=== PATIENT | male | born 1970 | race Caucasian/White ===

== ENCOUNTER → 2017-04-11 | Outpatient (CLI) | payer OTHER ==
[2017-04-11 09:59] LABS: Basophils % (A) 0 %; CH 32.2; CHCM 33.4; Eosinophils # (A) 0.1 k/uL (0-0.7); Eosinophils % (A) 1 %; HCT 40.1 % (39.0-53.0); HDW 2.48; HGB 13.2 gm/dL (13.0-17.5); Luc # (Auto) 0.08; Luc % (Auto) 2; Lymphocytes # (A) 1.2 k/uL (1.0-4.8); Lymphocytes % (A) 23 %; MCHC 32.9 g/dL (31.0-37.0); MCV 97.1 fL (80.0-100.0); Mean Platelet Volume 8.4; Monocytes # (A) 0.3 k/uL (0-1.0); Monocytes % (A) 6 %; Neutrophils # (A) 3.6 k/uL (1.3-7.7); Neutrophils % (A) 68 %; RBC 4.13 m/uL (4.30-5.90); RDW 14.1 % (11.5-15.5); WBC 5.3 k/uL (3.8-10.6); WBC (Perox) 5.37
[2017-04-11 10:16] LABS: ALT 34 U/L (21-72); AST 30 U/L (17-59); Alkaline Phosphatase 69 U/L (38-126); Anion Gap 7 mmol/L; Blood Urea Nitrogen 17 mg/dL (9-20); Calcium 8.8 mg/dL (8.4-10.2); Carbon Dioxide 27 mmol/L (22-30); Chloride 110 mmol/L (98-107); Cholesterol 144 mg/dL (<200); Creatine Kinase 52 U/L (55-170); Glucose 88 mg/dL (74-99); HDL Cholesterol 37 mg/dL (40-60); Non-African American GFR(MDRD) >60 (>60 ml/min/1.73 sqM); Potassium 4.9 mmol/L (3.5-5.1); Sodium 144 mmol/L (137-145); Total Bilirubin 0.3 mg/dL (0.2-1.3); Total Protein 7.1 g/dL (6.3-8.2)
[2017-04-11 10:37] LABS: Erythrocyte Sedimentation Rate 19 mm/hr (0-15)
[2017-04-11 10:47] LABS: Prostate Specific Antigen 0.44 ng/mL (0.00-4.00)
[2017-04-11 11:05] LABS: Vitamin B12 483 pg/mL (239-931)
[2017-04-11 11:47] LABS: Hepatitis B Surface Ag Index 0.05
[2017-04-11 11:53] LABS: Hepatitis B Core IgM Index 0.02
[2017-04-11 12:05] LABS: Hepatitis C Virus IgG Ab Negative (Negative); Hepatitis C Virus IgG Index 0.46
[2017-04-11 16:32] LABS: Treponemal Ab Non-Reactive (Non-Reactive)
== END | disposition home or self-care (01) ==
LOC: LABWHC1 09:41
PROVIDERS: ATTEND Family Medicine
DX: Z00.00 Encounter for general adult medical examination without abnormal findings (principal); A64 Unspecified sexually transmitted disease; Z11.59 Encounter for screening for other viral diseases
CPT/HCPCS: 36415; 80053; 80061; 80074; 82306; 82550; 82607; 84153; 84443; 85025; 85652; 86780; 87389; 87390

== ENCOUNTER 2017-10-07 22:00 | Emergency (ER) | payer OTHER ==
[2017-10-07 22:13] VITALS: BP 100/73; PULSE 114; RESP 16; TEMP 98.7
--- NOTE | 2017-10-07 22:44 | ED ---
Skin/Abscess/FB HPI - General Chief complaint: Skin/Abscess/Foreign Body Stated complaint: burn on thumb Time Seen by Provider: 10/07/17 22:18 Source: patient, RN notes reviewed Mode of arrival: ambulatory Limitations: no limitations - History of Present Illness Initial comments: This is a 47-year-old male who presents to the emergency department with chief complaint of burn on his right thumb. Patient states that he burned his right thumb with a cigarette one week ago. He states that he feels like it is infected. He states that it is very painful. 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 Denies any fevers or chills. Denies shortness of breath or chest pain, abdominal pain, nausea or vomiting. - Related Data Home Medications Medication Instructions Recorded Confirmed Doxazosin [Cardura] 2 mg PO DAILY 01/03/16 02/15/16 Mupirocin Calcium 2% Cream 1 applic TOPICAL DIRECTED 01/03/16 02/15/16 [Bactroban Cream] Omeprazole 20 mg PO DAILY 01/03/16 02/15/16 QUEtiapine [SEROquel] 800 mg PO BID 01/03/16 02/15/16 Previous Rx's Medication Instructions Recorded Cephalexin [Keflex] 500 mg PO Q12HR #20 cap 10/07/17 Sulfamethox-Tmp 800-160Mg [Bactrim 1 tab PO Q12HR #20 tab 10/07/17 DS 800-160 mg] Allergies Allergy/AdvReac Type Severity Reaction Status Date / Time No Known Allergies Allergy Verified 10/07/17 22:11 Review of Systems ROS Statement: Those systems with pertinent positive or pertinent negative responses have been documented in the HPI. ROS Other: All systems not noted in ROS Statement are negative. Past Medical History Past Medical History: CVA/TIA Additional Past Medical History / Comment(s): States no HX History of Any Multi-Drug Resistant Organisms: None Reported Past Surgical History: Hernia Repair Past Anesthesia/Blood Transfusion Reactions: No Reported Reaction Past Psychological History: Depression Smoking Status: Current every day smoker Past Alcohol Use History: None Reported Past Drug Use History: Marijuana - Past Family History Mother Family Medical History: Cancer General Exam - General Exam Comments Initial Comments: General: Awake and alert, well-developed; in no apparent distress. HEENT: Head atraumatic, normocephalic. Pupils are equal, round and reactive to light. Extraocular movements intact. Oropharynx moist without erythema or exudate. Poor dentition throughout. Neck: Supple. Normal ROM. Cardiovascular: Regular rate and rhythm. No murmurs, rubs or gallops. Chest symmetrical. Respiratory: Lungs clear to auscultation bilaterally. No wheezes, rales or rhonchi. Normal respiratory effort with no use of accessory muscles. Musculoskeletal: Normal ROM, no tenderness bilateral upper and lower extremities. Ambulating normally. Skin: [place], warm and dry. 1 cm x 1 cm superficial boil-like lesion on pad of right thumb. Appears to be a green substance within the lesion. Surrounding erythema with tenderness on palpation. Limitations: no limitations Course Vital Signs 10/07/17 22:11 Temperature 98.7 F Pulse Rate 114 H Respiratory 16 Rate Blood Pressure 100/73 O2 Sat by Pulse 97 Oximetry Procedures - Incision & Drainage Consent Obtained: verbal consent Indication: Abscess Site: hand (Pad of right thumb) Size (cm): 1 I&D Cleaning Method: Alcohol Wipe Scalpel Used: #11 I&D Drainage Obtained: Pus Culture Obtained?: No Patient Tolerated Procedure: well, no complications Medical Decision Making - Medical Decision Making This is a 47-year-old male who presents to the emergency department with chief complaint of burn to the right thumb one week ago. There is a superficial boil like lesion with green substance inside. I&D was performed. Patient tolerated well without complication. Patient does report a history of MRSA. He will be started on Keflex and Bactrim. Vital signs are stable. Patient will be discharged home. He is in agreement with plan and voices understanding. All questions were answered. Disposition Clinical Impression: Abscess of skin or subcutaneous tissue Disposition: HOME SELF-CARE Condition: Good Instructions: Abscess Incision and Drainage (ED), Abscess (ED) Additional Instructions: Please take medications as prescribed. Please follow-up with Dr. Rodriguez, orthopedics within 1-2 days. Please follow up with primary care provider within 1-2 days. Return to emergency department if symptoms should worsen or any concerns arise. Prescriptions: Cephalexin [Keflex] 500 mg PO Q12HR #20 cap Sulfamethox-Tmp 800-160Mg [Bactrim DS 800-160 mg] 1 tab PO Q12HR #20 tab Referrals: None,Stated [Primary Care Provider] - 1-2 days Cliff Rodriguez DO [Doctor of Osteopathic Medicine] - 1-2 days Time of Disposition: 22:51
== END 2017-10-07 22:55 | disposition home or self-care (01) ==
LOC: EC 22:00
DX: L02.511 Cutaneous abscess of right hand (principal); F32.9 Major depressive disorder, single episode, unspecified; F17.200 Nicotine dependence, unspecified, uncomplicated; Z86.14 Personal history of Methicillin resistant Staphylococcus aureus infection; Z86.73 Personal history of transient ischemic attack (TIA), and cerebral infarction without residual deficits; Z79.899 Other long term (current) drug therapy
CPT/HCPCS: 10060; 99283

== ENCOUNTER → 2020-08-29 | Outpatient (CLI) | payer OTHER ==
--- NOTE | 2020-08-29 16:07 | XR ---
MR spine HISTORY: Low back pain 3 views of lumbar spine submitted and correlated prior exam 12/03/2014 Lumbar vertebral bodies show stable height, alignment, and bone mineralization. There is mild multile nighat spondylosis present. Disc spaces are maintained, mild disc height loss L3-4. There is ossific den sity in the left lower quadrant which is incompletely visualized and indeterminate. Minimal retrolist hesis grade 1 L3-4. IMPRESSION: Degenerative disc disease is mild. Indeterminate density noted incidentally on the left.
== END | disposition home or self-care (01) ==
LOC: RADXRMAIN 15:17
PROVIDERS: ATTEND Nurse Practitioner
DX: M51.36 Other intervertebral disc degeneration, lumbar region (principal)
CPT/HCPCS: 72100

== ENCOUNTER → 2020-09-13 | Outpatient (CLI) | payer OTHER ==
[2020-09-13 15:22] LABS: Basophils % (A) 1 %; Eosinophils # (A) 0.1 k/uL (0-0.7); Eosinophils % (A) 3 %; HGB 14.5 gm/dL (13.0-17.5); Lymphocytes # (A) 0.5 k/uL (1.0-4.8); Lymphocytes % (A) 15 %; MCH 31.9 pg (25.0-35.0); MCHC 33.7 g/dL (31.0-37.0); MCV 94.7 fL (80.0-100.0); Mean Platelet Volume 9.4; Monocytes # (A) 0.2 k/uL (0-1.0); Monocytes % (A) 8 %; Neutrophils # (A) 2.3 k/uL (1.3-7.7); Neutrophils % (A) 73 %; Platelet Count 105 k/uL (150-450); RBC 4.54 m/uL (4.30-5.90); RDW 13.3 % (11.5-15.5); WBC 3.2 k/uL (3.8-10.6)
[2020-09-13 19:38] LABS: Albumin 3.7 g/dL (3.5-5.0); Calcium 8.5 mg/dL (8.4-10.2); Potassium 4.5 mmol/L (3.5-5.1); Total Bilirubin 0.7 mg/dL (0.2-1.3); Total Protein 8.3 g/dL (6.3-8.2)
--- NOTE | 2020-09-13 21:59 | CT ---
EXAMINATION TYPE: CT abdomen w con DATE OF EXAM: 09/13/2020 COMPARISON: None. INDICATION: Abnormal findings x-ray DLP: 1421.90 mGycm, Automated exposure control for dose reduction was used. CONTRAST: 100 mL of Isovue 300. Study performed without Oral Contrast TECHNIQUE: Axial images were obtained from above the diaphragm to the pubic rami in the axial plane a t 5 mm thick sections. Reconstructed images are reviewed on the computer in the coronal plane. FINDINGS: Limited CT sections are obtained the lung bases. The lung bases are clear. CT ABDOMEN: Liver: Normal Spleen: Normal Pancreas: Normal Adrenal glands: The adrenal glands are normal. Gallbladder: Gallstone is present. Kidneys: Right kidney is atrophic. There is a large extrarenal pelvis and hydronephrosis. Hydroureter on the right is not evident. No left hydronephrosis or hydroureter is evident.. Delayed images were obtained through the kidneys which otherwise appear unremarkable Aorta: Vascular calcification is within the aorta. Inferior vena cava: Normal. Loops of bowel within the abdomen and pelvis are normal. There are loops of bowel which are incom pletely distended or lack oral contrast limiting their evaluation. Appendix: Normal as visualized. IMPRESSIONS: 1. Atrophic right kidney with hydronephrosis. No hydroureter is evident.
== END | disposition home or self-care (01) ==
LOC: RADCTMAIN 13:40
PROVIDERS: ATTEND Internal Medicine
DX: N13.39 Other hydronephrosis (principal); B20 Human immunodeficiency virus [HIV] disease
CPT/HCPCS: 87535; 80053; 87901; 85025; 74160; 36415; Q9967; 86355; 86357; 86359; 86360

== ENCOUNTER → 2020-11-17 | Outpatient (CLI) | payer OTHER ==
[~2020-11-17] MED LIST: FUROSEMIDE 10 MG/ML 2 ML VIAL IV ONE
--- NOTE | 2020-11-17 16:21 | NM ---
EXAMINATION TYPE: NM lasix renogram DATE OF EXAM: 11/17/2020 COMPARISON: CT 09/13/2020 HISTORY: N 13.3, hydronephrosis Following administration of 10.6 mCi Tc 99m MAG3 with 20mg Lasix. Immediate images post injection FINDINGS: Left: 94.4 %. Right: 5.6 %. Max renal flow left: 6 minutes. Max renal flow right: 5.6 minutes. Satisfactory accumulation of radiotracer within left renal collecting system. Not much activity ident ified within the right knee. After the administration of Lasix, there is prompt excretion from the le ft renal collecting system. Some delayed activity is noted within the right kidney, minimal excretion is noted. T 1/2 left: 15.3 minutes. T 1/2 right: 18.8 minutes. IMPRESSION: Atrophic right kidney. Activity is primarily within the left kidney suggesting primary renal function on the left.
== END | disposition home or self-care (01) ==
LOC: RADNMMAIN 12:49
PROVIDERS: ATTEND Urology
DX: N26.1 Atrophy of kidney (terminal) (principal)
CPT/HCPCS: 78708; A9562

== ENCOUNTER → 2020-11-17 | Outpatient (CLI) | payer OTHER ==
[2020-11-17 21:14] LABS: African American GFR (CKD) 56.6 (60.0-200.0); Anion Gap 6.2 mmol/L (4.00-12.00); BUN/Creat Ratio 11.25 Ratio (12.00-20.00); Calcium 9.1 mg/dL (8.7-10.3); Carbon Dioxide 25.8 mmol/L (21.6-31.8); Non-African American GFR(CKD) 48.8 (60.0-200.0); Potassium 4.3 mmol/L (3.5-5.5)
[2020-11-17 21:29] LABS: Basophils # (A) 0.01 X 10*3/uL (0.00-0.10); Basophils % (A) 0.2 %; Eosinophils # (A) 0.04 X 10*3/uL (0.04-0.35); Eosinophils % (A) 0.8 %; HCT 42.5 % (39.6-50.0); HGB 13.6 g/dL (13.0-17.0); Lymphocytes # (A) 0.74 X 10*3/uL (0.90-5.00); Lymphocytes % (A) 15.5 %; MCH 30.4 pg (27.0-32.0); MCV 95.1 fL (80.0-97.0); Mean Platelet Volume 11.7 fL (9.5-12.2); Monocytes # (A) 0.39 X 10*3/uL (0.20-1.00); Monocytes % (A) 8.2 %; Neutrophils # (A) 3.56 X 10*3/uL (1.80-7.70); Neutrophils % (A) 74.9 %; Platelet Count 109 X 10*3/uL (140-440); RBC 4.47 X 10*6/uL (4.40-5.60); RDW 14.5 % (11.5-14.5); WBC 4.76 X 10*3/uL (4.50-10.00)
[2020-11-18 14:18] LABS: T Helper Cell (CD4) 18 cell/ul (443-1471); T Helper Cell (CD4) % 3 % (35-66); T Suppressor Cell (CD8) 493 cell/ul (190-832); T Suppressor Cell (CD8) % 72 % (9-37); T4/T8 Ratio (CD4:CD8) <0.1 (1.0-3.7)
== END | disposition home or self-care (01) ==
LOC: LABWHC1 13:55
PROVIDERS: ATTEND Internal Medicine Infectious Disease
DX: B20 Human immunodeficiency virus [HIV] disease (principal)
CPT/HCPCS: 36415; 80048; 85025; 86360; 87901

== ENCOUNTER 2020-11-22 10:55 | Emergency (ER) | payer OTHER ==
[2020-11-22 11:32] VITALS: RESP 18
--- NOTE | 2020-11-22 12:48 | CT ---
EXAMINATION TYPE: CT brain barron wo con DATE OF EXAM: 11/22/2020 COMPARISON: 01/20/2011 HISTORY: Fall/head injury CT DLP: 1543 mGycm, Automated exposure control for dose reduction was used. CONTRAST: Patient injected with 0 mL of Isovue 300. CT of the brain is performed utilizing 3 mm thick sections through the posterior fossa and 3 mm thick sections through the remaining calvarium. Study is performed within 24 hours of arrival to the hospital. No abnormal hyperdensity is present to suggest an acute intracranial hemorrhage. No mass lesion is evident. No acute infarcts are evident. Ventricles and sulci are appropriate for the patient age. There is some mild mucosal thickening within the inferior left maxillary sinus. Left septal deviation is noted. Remaining paranasal sinuses and mastoid air cells are clear. IMPRESSIONS: 1. Normal CT brain. CT cervical spine. COMPARISON: None CT of the cervical spine is performed in the axial plane at 2 mm thick sections. Reconstructed image s in the coronal, and sagittal plane are reviewed on the computer. No acute fractures are evident. There is mild kyphosis through the cervical spine. Mild anterior vertebral body spurring is present C 4-C7 Disc heights are preserved. Vertebral body heights are preserved. No spinal canal stenosis is evident. No neural foraminal stenosis is evident. IMPRESSIONS: 1. Mild kyphosis. 2. No acute osseous abnormality.
--- NOTE | 2020-11-22 13:18 | ED ---
General Adult HPI - General Chief complaint: Fall Stated complaint: Fall/Head injury yesterday Time Seen by Provider: 11/22/20 11:30 Source: patient Mode of arrival: wheelchair Limitations: no limitations - History of Present Illness Initial comments: 50-year-old male with a past medical history of CVA presents to the emergency room for a chief complaint of fall. Patient was walking down the stairs and fell down about 3 stairs. He did hit his head. No other complaints. Patient lives at a and assisted living facility. The caregiver there saw a lump on his head so wanted him evaluated. He did not have a loss of consciousness. He does not take blood thinners. He does not have any neck back chest or abdominal pain. No other complaints. Patient has no other complaints at this time including shortness of breath, chest pain, abdominal pain, nausea or vomiting, headache, or visual changes. - Related Data Home Medications Medication Instructions Recorded Confirmed Doxazosin [Cardura] 2 mg PO DAILY 01/03/16 02/15/16 Mupirocin Calcium 2% Cream 1 applic TOPICAL DIRECTED 01/03/16 02/15/16 [Bactroban Cream] Omeprazole 20 mg PO DAILY 01/03/16 02/15/16 QUEtiapine [SEROquel] 800 mg PO BID 01/03/16 02/15/16 Previous Rx's Medication Instructions Recorded Cephalexin [Keflex] 500 mg PO Q12HR #20 cap 10/07/17 Sulfamethox-Tmp 800-160Mg [Bactrim 1 tab PO Q12HR #20 tab 10/07/17 DS 800-160 mg] Allergies Allergy/AdvReac Type Severity Reaction Status Date / Time No Known Allergies Allergy Verified 11/22/20 11:23 Review of Systems ROS Statement: Those systems with pertinent positive or pertinent negative responses have been documented in the HPI. ROS Other: All systems not noted in ROS Statement are negative. Past Medical History Past Medical History: CVA/TIA Additional Past Medical History / Comment(s): States no HX History of Any Multi-Drug Resistant Organisms: None Reported Past Surgical History: Hernia Repair Past Anesthesia/Blood Transfusion Reactions: No Reported Reaction Past Psychological History: Depression Past Alcohol Use History: None Reported Past Drug Use History: Marijuana - Past Family History Mother Family Medical History: Cancer General Exam Limitations: no limitations General appearance: alert, in no apparent distress Head exam: Present: atraumatic, normocephalic, normal inspection, other (Patient has a small soft tissue growths noted to the scalp. There is no hematoma or traumatic injury.) Eye exam: Present: normal appearance, PERRL, EOMI. Absent: scleral icterus, conjunctival injection, periorbital swelling ENT exam: Present: normal exam, mucous membranes moist Neck exam: Present: normal inspection, full ROM. Absent: tenderness, meningismus, lymphadenopathy Respiratory exam: Present: normal lung sounds bilaterally. Absent: respiratory distress, wheezes, rales, rhonchi, stridor, other (No ecchymosis) Cardiovascular Exam: Present: regular rate, normal rhythm, normal heart sounds. Absent: systolic murmur, diastolic murmur, rubs, gallop, clicks GI/Abdominal exam: Present: soft, normal bowel sounds. Absent: distended, tenderness, guarding, rebound, rigid, other (No ecchymosis) Extremities exam: Present: other (Moving all extremities, no external signs of trauma.) Back exam: Absent: CVA tenderness (R), CVA tenderness (L), vertebral tenderness Neurological exam: Present: alert Course Vital Signs 11/22/20 11/22/20 11:11 11:44 Temperature 98.3 F Pulse Rate 83 72 Respiratory 18 Rate Blood Pressure 87/62 108/71 O2 Sat by Pulse 98 Oximetry Medical Decision Making - Medical Decision Making Vitals are stable. She initially sightly hypotensive however caregiver reports that patient's blood pressure is always in the 90s. His blood pressure did improve to 108/71. Patient is well-appearing. Physical exam reveals soft tissue growths that are not traumatic. CT brain is negative for acute intracranial hemorrhage. CT cervical spine is negative for acute osseous abnormality. At this time patient is stable for discharge home. He will follow up with primary care. He will return here for any worsening symptoms. Disposition Clinical Impression: Head injury Disposition: TRANSFER TO PSYCH HOSP/UNIT Condition: Good Instructions (If sedation given, give patient instructions): Head Injury (ED) Additional Instructions: Please take Tylenol for pain. Please follow-up with primary care. Return to the emergency room for any worsening symptoms. Is patient prescribed a controlled substance at d/c from ED?: No [facility] [Primary Care Provider] - 1-2 days Time of Disposition: 13:16
[2020-11-22 13:39] VITALS: BP 114/75; PULSE 70; TEMP 98.4
== END 2020-11-22 13:38 ==
LOC: EC 10:55
DX: S09.90XA Unspecified injury of head, initial encounter (principal); F32.9 Major depressive disorder, single episode, unspecified; Z79.899 Other long term (current) drug therapy; Z86.73 Personal history of transient ischemic attack (TIA), and cerebral infarction without residual deficits; W10.9XXA Fall (on) (from) unspecified stairs and steps, initial encounter; Y93.01 Activity, walking, marching and hiking
CPT/HCPCS: 70450; 72125; 99284